=== PATIENT | female | born 1980 | race American Indian/Alaskan Native ===

== ENCOUNTER 2016-11-22 23:57 | Emergency (ER) | payer OTHER ==
[2016-11-23 01:58] LABS: Bacteria,Urine 1+ /HPF (Negative); Bilirubin,Urine NEG (Negative); Blood,Urine NEG (Negative); Ketones,Urine TR mg/dL (Negative); Leukocyte Esterase,Urine TR (Negative); Mucus,Urine 2+ /HPF; Nitrite,Urine NEG (Negative)
[2016-11-23 02:03] LABS: Basophils % (Auto) 0.5 % (0.0-1.8); Eosinophils % (Auto) 2.1 % (0.0-4.3); Hematocrit 39.9 % (30.3-42.9); Hemoglobin 12.7 gm/dl (10.1-14.3); Mean Corpuscular HGB Conc 32 % (30-34); Mean Corpuscular Hemoglobin 26 pg (28-32); Mean Corpuscular Volume 83 fl (79-97); Platelet Count 235 K/mm3 (140-440); Red Blood Count 4.82 M/mm3 (3.65-5.03); White Blood Count 6.6 K/mm3 (4.5-11.0)
[2016-11-23 02:20] LABS: Anion Gap 13 mmol/L; Blood Urea Nitrogen 14 mg/dL (7-17); Calcium 9.1 mg/dL (8.4-10.2); Carbon Dioxide 28 mmol/L (22-30); Chloride 103.4 mmol/L (98-107); Glucose 83 mg/dL (65-100); Potassium 4.8 mmol/L (3.6-5.0); Sodium 140 mmol/L (137-145)
[2016-11-23] MEDS ORDERED: MOTRIN PO ONE (03:48)
[2016-11-23] MEDS ORDERED: COMPAZINE PO ONE (03:48)
--- NOTE | 2016-11-23 03:48 | Emergency Department Report ---
ED Headache HPI - General Chief Complaint: Headache Stated Complaint: HEADACHE Time Seen by Provider: 11/23/16 03:41 - History of Present Illness Initial Comments: She is a 36-year-old female female who presents to ED complaining of occipital, throbbing, 6 out of 10 intensity type headache for the past one week. Patient states she's been taken Aleve with no relief. Patient states she also has some neck muscle stiffness and throbbing along with a headache. Patient considered aggravating factors. Patient states she has not been any trauma, fall. She reports to reduce sitting in front of the computer for several hours at a time last week She denies blurry vision, fever, chills, nausea, vomiting, abdominal pain, chest pain. Quality: constant Head Injury Location: occipital Recent Head Trauma: no recent headache/trauma Associated Symptoms: denies: confusion, fatigue, loss of consciousness, nausea/ vomiting Allergies/Adverse Reactions: Allergies No Known Allergies Allergy (Unverified 11/23/16 01:16) Home Medications: Ambulatory Orders Cyclobenzaprine [Flexeril] 10 mg PO QHS PRN #24 tablet 11/23/16 Ibuprofen [Motrin 800 MG tab] 800 mg PO Q8H #30 tablet 11/23/16 Prochlorperazine [Compazine] 10 mg PO DAILY #20 tablet 11/23/16 ED Review of Systems ROS: Stated complaint: HEADACHE Other details as noted in HPI Constitutional: denies: chills, fever Eyes: denies: eye pain, eye discharge, vision change ENT: denies: ear pain, throat pain Respiratory: denies: cough, shortness of breath, wheezing Cardiovascular: denies: chest pain, palpitations Endocrine: no symptoms reported Gastrointestinal: denies: abdominal pain, nausea, diarrhea Genitourinary: denies: urgency, dysuria, discharge Musculoskeletal: denies: back pain, joint swelling, arthralgia Skin: denies: rash, lesions Neurological: denies: headache, weakness, paresthesias Psychiatric: denies: anxiety, depression Hematological/Lymphatic: denies: easy bleeding, easy bruising ED Past Medical Hx - Past Medical History Previous Medical History?: No - Surgical History Past Surgical History?: No - Social History Smoking Status: Never Smoker Substance Use Type: Alcohol - Medications Home Medications: Home Medications Medication Instructions Recorded Confirmed Last Taken Type Cyclobenzaprine [Flexeril] 10 mg PO QHS PRN #24 tablet 11/23/16 Unknown Rx Ibuprofen [Motrin 800 MG tab] 800 mg PO Q8H #30 tablet 11/23/16 Unknown Rx Prochlorperazine [Compazine] 10 mg PO DAILY #20 tablet 11/23/16 Unknown Rx ED Physical Exam - General Limitations: No Limitations General appearance: alert, in no apparent distress - Head Head exam: Present: atraumatic, normocephalic - Eye Eye exam: Present: normal appearance - ENT ENT exam: Present: mucous membranes moist - Neck Neck exam: Present: normal inspection - Respiratory Respiratory exam: Present: normal lung sounds bilaterally. Absent: respiratory distress - Cardiovascular Cardiovascular Exam: Present: regular rate, normal rhythm. Absent: systolic murmur, diastolic murmur, rubs, gallop - GI/Abdominal GI/Abdominal exam: Present: soft, normal bowel sounds - Extremities Exam Extremities exam: Present: normal inspection - Back Exam Back exam: Present: normal inspection - Neurological Exam Neurological exam: Present: alert, oriented X3, CN II-XII intact, normal gait, reflexes normal - Expanded Neurological Exam Expanded Neurological exam: Absent: ataxia, tremor Patient oriented to: Present: person, place, time Speech: Present: fluid speech Cranial nerves: EOM's Intact: Normal Cerebellar function: Finger to Nose: Normal Sensory exam: Upper Extremity Light Touch: Normal, Upper Extremity Temperature: Normal Motor strength exam: RUE: 5, LUE: 5, RLE: 5, LLE: 5 DTR: knee (R): 2+, knee (L): 2+ Best Eye Response (Reg): (4) open spontaneously Best Motor Response (Reg): (6) obeys commands Best Verbal Response ([place]): (5) oriented Reg Total: 15 - Psychiatric Psychiatric exam: Present: normal affect, normal mood - Skin Skin exam: Present: warm, dry, intact, normal color. Absent: rash ED Course Vital Signs 11/23/16 11/23/16 01:15 04:43 Temperature 98.3 F Pulse Rate 67 61 Respiratory 14 18 Rate Blood Pressure 119/84 110/73 [Left] O2 Sat by Pulse 100 100 Oximetry ED Medical Decision Making - Lab Data Result diagrams: 11/23/16 01:43 11/23/16 01:43 - Medical Decision Making 36-year-old female presents with tension headache ED course: Patient received some Compazine. CBC, CMP, normal Discussed with patient and tension headaches since resolved on their own. Discussed the medication as prescribed. Discussed with worsening symptoms such as dizziness, blurry vision to return to ED. Discussed the follow-up primary care physician for management Vital signs are normal patient is in no acute distress. She is neurologically intact with no signs of neuro deficit Critical care attestation.: If time is entered above; I have spent that time in minutes in the direct care of this critically ill patient, excluding procedure time. ED Disposition Clinical Impression: Stress headache Tension type headache Qualifiers: Headache chronicity pattern: acute headache Intractability: not intractable Qualified Code(s): G44.209 - Tension-type headache, unspecified, not intractable Disposition: DC-01 TO HOME OR SELFCARE Is pt being admited?: No Does the pt Need Aspirin: No Condition: Stable Instructions: Tension Headache (ED), Acute Headache (ED) Prescriptions: Cyclobenzaprine [Flexeril] 10 mg PO QHS PRN #24 tablet PRN Reason: Muscle Spasm Ibuprofen [Motrin 800 MG tab] 800 mg PO Q8H #30 tablet Prochlorperazine [Compazine] 10 mg PO DAILY #20 tablet Referrals: PRIMARY CARE, [Primary Care Provider] - 3-5 Days [facility] [Outside] - 3-5 Days [facility] [Outside] - 3-5 Days [facility] [Outside] - 3-5 Days Forms: Accompanied Note, Work/School Release Form(ED) Time of Disposition: 04:37
[2016-11-23] MEDS ORDERED: FLEXERIL PO ONE (04:33)
[2016-11-23 04:44] VITALS: BP 110/73
== END 2016-11-23 04:44 | disposition home or self-care (01) ==
LOC: ED 23:57
DX: G44.209 Tension-type headache, unspecified, not intractable (principal)
CPT/HCPCS: 36415; 80048; 81001; 81025; 85025; 99283; Q0164

== ENCOUNTER 2019-06-03 20:02 | Emergency (ER) | payer OTHER ==
--- NOTE | 2019-06-03 21:17 | Event Note ---
ED Screening Note Date of service: 06/03/19 Time: 21:13 ED Screening Note: 39 y/o female comes in for SOB and chest pain times 3 days. Feels chest is tight and have right arm pain. Pain is dull and discomfort. No travel, no control and no cancers. PMH None, Meds naproxen for only headaches. This initial assessment/diagnostic orders/clinical plan/treatment(s) is/are subject to change based on patients health status, clinical progression and re- assessment by fellow clinical providers in the ED. Further treatment and workup at subsequent clinical providers discretion. Patient/guardian urged not to elope from the ED as their condition may be serious if not clinically assessed and managed. Initial orders include:
[2019-06-03 21:43] LABS: Basophils # (Auto) 0.1 K/mm3 (0.0-0.1); Basophils % (Auto) 0.7 % (0.0-1.8); Eosinophils # (Auto) 0.2 K/mm3 (0.0-0.4); Hematocrit 37.8 % (30.3-42.9); Hemoglobin 12.6 gm/dl (10.1-14.3); Lymphocytes # (Auto) 2.6 K/mm3 (1.2-5.4); Lymphocytes % (Auto) 33.3 % (13.4-35.0); Mean Corpuscular HGB Conc 33 % (30-34); Mean Corpuscular Volume 81 fl (79-97); Monocytes # (Auto) 0.6 K/mm3 (0.0-0.8); Monocytes % (Auto) 7.6 % (0.0-7.3); Platelet Count 234 K/mm3 (140-440); Red Blood Count 4.66 M/mm3 (3.65-5.03); Red Cell Distribution Width 14.3 % (13.2-15.2)
[2019-06-03 22:07] LABS: Alanine Aminotransferase 13 units/L (7-56); Albumin 3.7 g/dL (3.9-5); BUN/Creatinine Ratio 14; Blood Urea Nitrogen 13 mg/dL (7-17); Hemolysis Index 9
--- NOTE | 2019-06-03 22:16 | XRay Report ---
CHEST 2 VIEWS INDICATION / CLINICAL INFORMATION: chest pain and tightness.. COMPARISON: None available. FINDINGS: SUPPORT DEVICES: None. HEART / MEDIASTINUM: No significant abnormality. LUNGS / PLEURA: No significant pulmonary or pleural abnormality. No pneumothorax. ADDITIONAL FINDINGS: No significant additional findings. IMPRESSION: 1. No significant abnormality. Signer Name: Marlene Schreiber MD Signed: 06/03/2019 10:11 PM Workstation Name: [id number]
[2019-06-04 00:23] VITALS: BP 108/62
--- NOTE | 2019-06-04 00:25 | Emergency Department Report ---
ED Chest Pain HPI - General Chief Complaint: Chest Pain Stated Complaint: CHEST PAIN/RT ARM TINGLING/SOB Time Seen by Provider: 06/03/19 21:12 Source: patient Mode of arrival: Ambulatory Limitations: No Limitations - History of Present Illness Initial Comments: Patient is a 39-year-old female who presents emergency room with complaints of substernal chest pain that began 3 days ago. She describes the pain as a dullness and tightness. She states that occasionally states she feels short of breath with talking and has to catch her breath to continue. She states that she has associated tingling in the right arm. She denies any pleuritic chest pain, nausea, vomiting, diaphoresis, leg swelling. She denies any recent travel, recent surgery, hormone use. She denies any past medical history or allergies medications. She is a nonsmoker. She denies any family cardiac history or history of DVT/PE. Severity scale (0 -10): 5 - Related Data Previous Rx's Medication Instructions Recorded Last Taken Type Cyclobenzaprine [Flexeril] 10 mg PO QHS PRN #24 tablet 11/23/16 Unknown Rx Ibuprofen [Motrin 800 MG tab] 800 mg PO Q8H #30 tablet 11/23/16 Unknown Rx Prochlorperazine [Compazine] 10 mg PO DAILY #20 tablet 11/23/16 Unknown Rx Allergies Allergy/AdvReac Type Severity Reaction Status Date / Time No Known Allergies Allergy Unverified 11/23/16 01:16 Heart Score - HEART Score History: Slightly suspicious EKG: Normal Age: < 45 Risk factors: 1-2 risk factors Troponin: < normal limit HEART Score: 1 ED Review of Systems ROS: Stated complaint: CHEST PAIN/RT ARM TINGLING/SOB Other details as noted in HPI Comment: All other systems reviewed and negative ED Past Medical Hx - Past Medical History Previous Medical History?: No - Surgical History Past Surgical History?: No - Social History Smoking Status: Never Smoker - Medications Home Medications: Home Medications Medication Instructions Recorded Confirmed Last Taken Type Cyclobenzaprine [Flexeril] 10 mg PO QHS PRN #24 tablet 11/23/16 Unknown Rx Ibuprofen [Motrin 800 MG tab] 800 mg PO Q8H #30 tablet 11/23/16 Unknown Rx Prochlorperazine [Compazine] 10 mg PO DAILY #20 tablet 11/23/16 Unknown Rx ED Physical Exam - General Limitations: No Limitations General appearance: alert, in no apparent distress - Head Head exam: Present: atraumatic, normocephalic - Eye Eye exam: Present: normal appearance - ENT ENT exam: Present: mucous membranes moist - Respiratory Respiratory exam: Present: normal lung sounds bilaterally. Absent: respiratory distress, wheezes, rales, rhonchi, stridor, chest wall tenderness, accessory muscle use, decreased breath sounds, prolonged expiratory - Cardiovascular Cardiovascular Exam: Present: regular rate, normal rhythm, normal heart sounds. Absent: systolic murmur, diastolic murmur, rubs, gallop - Extremities Exam Extremities exam: Absent: pedal edema - Neurological Exam Neurological exam: Present: alert, oriented X3 - Psychiatric Psychiatric exam: Present: normal affect, normal mood - Skin Skin exam: Present: warm, dry, intact ED Course Vital Signs 06/03/19 06/03/19 06/03/19 20:09 23:04 23:31 Temperature 98.3 F 98.1 F Pulse Rate 78 71 62 Respiratory 16 14 11 L Rate Blood Pressure 128/79 111/65 Blood Pressure 117/72 [Left] O2 Sat by Pulse 94 98 99 Oximetry 06/04/19 00:00 Temperature Pulse Rate 64 Respiratory 12 Rate Blood Pressure 108/62 Blood Pressure [Left] O2 Sat by Pulse 100 Oximetry NATHANAEL score - Nathanael Score Age > 65: (0) No Aspirin use within the Past 7 Days: (0) No 3 or more CAD Risk Factors: (0) No 2 or more Angina events in past 24 hrs: (0) No Known CAD with more than 50% Stenosis: (0) No Elevated Cardiac Markers: (0) No ST Deviation Greater than 0.5mm: (0) No NATHANAEL Score: 0 ED Medical Decision Making - Lab Data Result diagrams: 06/03/19 21:28 06/03/19 21:28 Lab Results 06/03/19 06/03/19 06/03/19 Range/Units 21:28 21:28 23:26 WBC 7.8 (4.5-11.0) K/mm3 RBC 4.66 (3.65-5.03) M/mm3 Hgb 12.6 (10.1-14.3) gm/dl Hct 37.8 (30.3-42.9) % MCV 81 (79-97) fl MCH 27 L (28-32) pg MCHC 33 (30-34) % RDW 14.3 (13.2-15.2) % Plt Count 234 (140-440) K/mm3 Lymph % (Auto) 33.3 (13.4-35.0) % [place] % (Auto) 7.6 H (0.0-7.3) % Eos % (Auto) 2.0 (0.0-4.3) % Baso % (Auto) 0.7 (0.0-1.8) % Lymph # 2.6 (1.2-5.4) K/mm3 Valley # 0.6 (0.0-0.8) K/mm3 Eos # 0.2 (0.0-0.4) K/mm3 Baso # 0.1 (0.0-0.1) K/mm3 Seg Neutrophils % 56.4 (40.0-70.0) % Seg Neutrophils # 4.4 (1.8-7.7) K/mm3 D-Dimer 165.32 (0-234) ng/mlDDU Sodium 134 L (137-145) mmol/L Potassium 3.6 (3.6-5.0) mmol/L Chloride 102.0 (98-107) mmol/L Carbon Dioxide 18 L (22-30) mmol/L Anion Gap 18 mmol/L BUN 13 (7-17) mg/dL Creatinine 0.9 (0.7-1.2) mg/dL Estimated GFR > 60 ml/min BUN/Creatinine Ratio 14 % Glucose 99 (65-100) mg/dL Calcium 9.0 (8.4-10.2) mg/dL Total Bilirubin 0.40 (0.1-1.2) mg/dL AST 15 (5-40) units/L ALT 13 (7-56) units/L Alkaline Phosphatase 55 (35-129) units/L Troponin T < 0.010 (0.00-0.029) ng/mL Total Protein 7.9 (6.3-8.2) g/dL Albumin 3.7 L (3.9-5) g/dL Albumin/Globulin Ratio 0.9 % 06/04/19 Range/Units 00:04 WBC (4.5-11.0) K/mm3 RBC (3.65-5.03) M/mm3 Hgb (10.1-14.3) gm/dl Hct (30.3-42.9) % MCV (79-97) fl MCH (28-32) pg MCHC (30-34) % RDW (13.2-15.2) % Plt Count (140-440) K/mm3 Lymph % (Auto) (13.4-35.0) % Valley % (Auto) (0.0-7.3) % Eos % (Auto) (0.0-4.3) % Baso % (Auto) (0.0-1.8) % Lymph # (1.2-5.4) K/mm3 [place] # (0.0-0.8) K/mm3 Eos # (0.0-0.4) K/mm3 Baso # (0.0-0.1) K/mm3 Seg Neutrophils % (40.0-70.0) % Seg Neutrophils # (1.8-7.7) K/mm3 D-Dimer (0-234) ng/mlDDU Sodium (137-145) mmol/L Potassium (3.6-5.0) mmol/L Chloride (98-107) mmol/L Carbon Dioxide (22-30) mmol/L Anion Gap mmol/L BUN (7-17) mg/dL Creatinine (0.7-1.2) mg/dL Estimated GFR ml/min BUN/Creatinine Ratio % Glucose (65-100) mg/dL Calcium (8.4-10.2) mg/dL Total Bilirubin (0.1-1.2) mg/dL AST (5-40) units/L ALT (7-56) units/L Alkaline Phosphatase (35-129) units/L Troponin T < 0.010 (0.00-0.029) ng/mL Total Protein (6.3-8.2) g/dL Albumin (3.9-5) g/dL Albumin/Globulin Ratio % - EKG Data EKG shows normal: sinus rhythm, axis, intervals, QRS complexes, ST-T waves Rate: normal - Radiology Data Radiology results: report reviewed CHEST 2 VIEWS INDICATION / CLINICAL INFORMATION: chest pain and tightness.. COMPARISON: None available. FINDINGS: SUPPORT DEVICES: None. HEART / MEDIASTINUM: No significant abnormality. LUNGS / PLEURA: No significant pulmonary or pleural abnormality. No pneumothorax. ADDITIONAL FINDINGS: No significant additional findings. IMPRESSION: 1. No significant abnormality. Signer Name: Marlene Schreiber MD Signed: 06/03/2019 10:11 PM Workstation Name: [id number] Transcribed By: Dictated By: Marlene Schreiber MD Electronically Authenticated By: Marlene Schreiber MD Signed Date/Time: 06/03/192210 DD/ 10 TD/TT: - Medical Decision Making Patient is a 39-year-old female who presents emergency room with complaints of substernal chest pain that began 3 days ago. She describes the pain as a dullness and tightness. She states that occasionally states she feels short of breath with talking and has to catch her breath to continue. She states that she has associated tingling in the right arm. She denies any pleuritic chest pain, nausea, vomiting, diaphoresis, leg swelling. She denies any recent travel, recent surgery, hormone use. She denies any past medical history or allergies medications. She is a nonsmoker. She denies any family cardiac history or history of DVT/PE. vitals are normal. labs are normal. Troponin is negative 2. D-dimer is negative. EKG WNL. CXR 1. No significant abnormality. Heart score is 1 and NATHANAEL score is 0 very low risk for cardiac event. Patient is low risk for PE and d-dimer is negative. will have patient follow-up with a ranch manager on outpatient basis. advised pt to please follow-up with a ranch manager and your primary care doctor in the next 2-3 days. Return to the emergency room for any new or worsening symptoms. - Differential Diagnosis ACS, PUD, GERD, PE, cardiomyopathy, anemia, costochrondritis, AA Critical care attestation.: If time is entered above; I have spent that time in minutes in the direct care of this critically ill patient, excluding procedure time. ED Disposition Clinical Impression: SOB (shortness of breath) Chest pain Qualifiers: Chest pain type: unspecified Qualified Code(s): R07.9 - Chest pain, unspecified Disposition: - TO HOME OR SELFCARE Is pt being admited?: No Does the pt Need Aspirin: No Condition: Stable Instructions: Chest Pain (ED), Dyspnea (ED) Additional Instructions: Please follow-up with a ranch manager and your primary care doctor in the next 2- 3 days. Return to the emergency room for any new or worsening symptoms. Referrals: PRIMARY CARE, [Primary Care Provider] - 2-3 Days PAULO ROJAS MD [Staff Physician] - 2-3 Days Time of Disposition: 01:04 Print Language: SLOVENIAN
== END 2019-06-04 01:15 | disposition home or self-care (01) ==
LOC: ED 20:02
DX: R07.89 Other chest pain (principal); R06.02 Shortness of breath; R20.2 Paresthesia of skin; Z79.899 Other long term (current) drug therapy
CPT/HCPCS: 36415; 71046; 80053; 84484; 85025; 85379; 93005; 93010